=== PATIENT | female | born 1970 | race Caucasian/White ===

== ENCOUNTER → 2017-11-05 | Outpatient (CLI) | payer BC ==
[~2017-11-05] MED LIST: BCPILLS PO; MULT-506 PO
--- NOTE | 2017-11-06 08:02 | MAMMOGRAPHY REPORT ---
BILATERAL DIGITAL SCREENING MAMMOGRAM TOMOSYNTHESIS WITH CAD: 11/05/2017 CLINICAL HISTORY: Routine screening. Patient has no complaints. TECHNIQUE: Breast tomosynthesis in addition to standard 2D mammography was performed. Current study was also evaluated with a Computer Aided Detection (CAD) system. COMPARISON: Comparison is made to exams dated: 10/04/2015 mammogram, 09/30/2014 mammogram, 03/24/2012 ul trasound, 03/24/2012 mammogram, 03/18/2012 mammogram, and 10/01/2012 mammogram - [facility]. BREAST COMPOSITION: The tissue of both breasts is heterogeneously dense, which may obscure small mas ses. FINDINGS: There is a stable lobulated mass with associated ribbon-shaped biopsy marker clip in the l ower inner quadrant of the right breast. No new suspicious mass, architectural distortion or cluster of microcalcifications is seen. IMPRESSION: ACR BI-RADS CATEGORY 1: NEGATIVE There is no mammographic evidence of malignancy. A 1 year screening mammogram is recommended. The pa tient will receive written notification of the results. Approximately 10% of breast cancers are not detected with mammography. A negative mammographic report should not delay biopsy if a clinically suggestive mass is present. Jennifer Us M.D. ay/:11/05/2017 15:10:59 Top Lifter: Carmela ALBA)([place]), [facility] letter sent: Normal 1/2 BI-RADS Code: ACR BI-RADS Category 1: Negative
== END | disposition home or self-care (01) ==
LOC: C.MAMM 10:17
PROVIDERS: ATTEND Nurse Practitioner
DX: Z12.31 Encounter for screening mammogram for malignant neoplasm of breast (principal)

== ENCOUNTER → 2017-11-26 | Outpatient (CLI) | payer BC ==
[2017-11-26 17:33] LABS: BLOOD UREA NITROGEN 14 mg/dl (7-18); CALCIUM 9.1 mg/dl (8.5-10.1); CARBON DIOXIDE 26 mmol/L (21-32); CREATININE 0.54 mg/dl (0.60-1.20); GLUCOSE 100 mg/dl (70-99); POTASSIUM 3.5 mmol/L (3.5-5.1); SODIUM 138 mmol/L (136-145)
== END | disposition home or self-care (01) ==
LOC: C.LABPVFM 15:44
PROVIDERS: ATTEND Nurse Practitioner
DX: R53.83 Other fatigue (principal); M25.50 Pain in unspecified joint; R41.3 Other amnesia

== ENCOUNTER 2019-03-31 08:33 | Inpatient (IN) ==
--- NOTE | 2019-03-20 08:31 | History & Physical Report ---
Date of Service March 20, 2019 Date of Surgery: 03-31-19 Assessment & Plan (1) Arthritis of knee, right: Risks and benefits of procedure discussed in detail today, patient would like to proceed with a Right total knee replacement at [facility] as scheduled. obtain PATs at [facility]. Will place on ASA 81mg po bid x 1 month post op, f/u 2 weeks post op for routine post-operative care and x-ray, sooner if having any problems. will make arrangements for HHPT at the time of discharge. At this point in time, has failed conservative measures and would like to proceed with surgical intervention. History of Present Illness Chief Complaint: right knee pain Primary Care Provider: DULCE MARIA Abrams Ms Barlow is a 48 year old female who complains of knee pain, presents for pre-op evaluation prior to a right total knee replacement by dr Villanueva at [facility]. She complains of pain, crepitus, decreased range of motion, instability and stiffness in the right knee. She states that the symptoms have been chronic and non-traumatic. she states that the symptoms occur constantly with intermittent worsening. Currently the patient states that the symptoms are moderate-severe. The pain is described as aching, sharp and throbbing. The symptoms occur continuously. The symptoms are aggravated by ascending stairs, daily activities, first steps while awake walking. Prior NSAIDs include Mobic, IBU and Aleve. Prior pain medications include Tylenol. She has been treated with previous Cortisone and Visco injections in the past without much relief. She has had Pt and sometimes uses a knee brace. Patient has also had arthroscopic surgery in the past, Dr. Villanueva performed a Right knee arthroscopy in many years ago. Allergies Allergy/AdvReac Type Severity Reaction Status Date / Time No Known Drug Allergies Allergy Verified 03/13/19 15:51 Home Medications Home Medications Medication Instructions Recorded Confirmed Type Cbd Oil 1 - 2 tab PO DAILY 03/12/19 03/17/19 History meloxicam 15 mg PO DAILY 03/12/19 03/17/19 History multivitamin 1 tab PO DAILY 03/12/19 03/17/19 History norethindrone acetate 1 mg-ethinyl 1 tab PO DAILY #21 tab 03/17/19 03/17/19 Rx estradiol 20 mcg tablet Past Med/Surg History Medical History Depression History of anemia as a child Osteoarthritis Surgical History H/O hand surgery RT HAND FOREIGN OBJECT REMOVED History of arthroscopy RT KNEE History of breast biopsy History of ear surgery RT EAR PUNCTURE REPAIR History of open reduction and internal fixation (ORIF) procedure RT ANKLE (HARDWARE) History of tooth extraction Family History Other No significant family history Social History Preferred Language: Ecuadorean Communication Ability: Effective Beliefs That Will Affect Care: None Current Living Situation: Spouse Feels Safe at Home: Yes Smoking Status: Never smoker Second Hand Exposure: No Hx Alcohol Use: Yes Alcohol type: wine and hard liquor Hx Substance Use: No Review of Systems Review of Systems: All systems reviewed & are unremarkable except as noted in HPI & below Constitutional: no fever, no chills and no sweats Respiratory: no cough and no dyspnea Cardiovascular: no chest pain, no dyspnea and no orthopnea Gastrointestinal: no abdominal pain, no nausea and no vomiting Musculoskeletal: as per Subjective / HPI Physical Exam Physical Exam: Ht: 5ft 5in Wt: 88.45kg BP: 112/76 Pulse: 70 Constitutional: WD/WN, vitals as above no acute distress Respiratory: normal respiratory effort, lungs clear to auscultation no respiratory distress, no labored breathing and does not use accessory muscles Cardiovascular: RRR, no murmur, no edema Gastrointestinal (Abdomen): normal bowel sounds, soft, nontender, no hepatosplenomegaly Musculoskeletal: Right Knee Exam she ambulates with a limp, overall varus alignment, There is no ecchymosis or erythema, mild effusion, diffuse tenderness to the knee greatest over medial compartment, negative patellar apprehension , mild crepitation with motion, rossy's negative, Jason's - medial positive, Posterior drawer- negative, anterior drawer negative, valgus stress negative, varus stress negative, no extensor lag, pain with active range of motion, less pain with passive painful ROM, Range of motion 0/3/110. No pain with active/passive ROM of ankle. Lower extremity strength normal. Lower extremity neuro-vascular is normal Results & Data Diagnostic Findings Right Knee X-ray from 10-08-18 confirms advanced degenerative changes to the right knee with narrowing of the medial compartment and patello-femoral joint with patellar spurring noted, there is osteophyte formation and subchondral sclerosis noted. overall varus alignment. no acute bony pathology noted.
--- NOTE | 2019-03-20 15:11 | PAT Medication Instructions ---
Medication Instructions Date of Service March 20, 2019 Home Medications Medication Instructions Recorded norethindrone acetate 1 mg-ethinyl 1 tab PO DAILY #21 tab 03/17/19 estradiol 20 mcg tablet Cbd Oil 1 - 2 tab PO DAILY meloxicam 15 mg PO DAILY multivitamin 1 tab PO DAILY norethindrone acetate 1 mg-ethinyl estradiol 20 mcg tablet 1 tab PO DAILY ASK your surgeon for instructions meloxicam 15 mg PO DAILY DO NOT take the morning of surgery Cbd Oil 1 - 2 tab PO DAILY multivitamin 1 tab PO DAILY Take evening before surgery norethindrone acetate 1 mg-ethinyl estradiol 20 mcg tablet 1 tab PO DAILY *NOTHING TO EAT OR DRINK AFTER MIDNIGHT* Other Notes If you have any questions please call us at [phone] or [phone] or [phone] or [phone]
--- NOTE | 2019-03-20 15:13 | Anesthesiology Consultation ---
Date of Service March 20, 2019 Assessment & Plan (1) Encounter for pre-operative examination: PCP CLEARANCE 03/17 = "Pt is low risk for complications." TEST AM DOS Chart Review Chart Review: Acceptable Risk for Surgery and Patient seen in Pre Admission Testing Teaching & Discussion Instructed NPO after midnight before surgery, except medications with 15 cc of water. Medication instructions provided according to the PAT guidelines. History Surgery Operation Date: 03/31/19 07:15 Proposed Procedures p Right Total Knee Arthroplasty - Julián Villanueva DO Height/Weight Height: 5 ft 5 in Weight: 88.9 kg Allergies Allergy/AdvReac Type Severity Reaction Status Date / Time No Known Drug Allergies Allergy Verified 03/13/19 15:51 Medications Home Medications Medication Instructions Recorded Confirmed Last Taken Cbd Oil 1 - 2 tab PO DAILY 03/12/19 03/17/19 Unknown meloxicam 15 mg PO DAILY 03/12/19 03/17/19 Unknown multivitamin 1 tab PO DAILY 03/12/19 03/17/19 Unknown norethindrone acetate 1 mg-ethinyl 1 tab PO DAILY #21 tab 03/17/19 03/17/19 Unknown estradiol 20 mcg tablet Past Medical History Medical History Depression Obesity Osteoarthritis Exercise / Class Metabolic Activity II 4-5 Yardwork/Stairs/Walk up hill (denies CP or SOB with stairs) Past Family History Family History Other No significant family history Past Surgical History Surgical History H/O hand surgery RT HAND FOREIGN OBJECT REMOVED History of arthroscopy RT KNEE History of breast biopsy History of ear surgery RT EAR PUNCTURE REPAIR History of open reduction and internal fixation (ORIF) procedure RT ANKLE (HARDWARE) History of tooth extraction Past Anesthesia History No Hx of Anesthesia Complications and No Family Hx of Anesthesia Complications History of PONV No Hx of PONV and No Hx of Motion Sickness Social History Smoking Status: Never smoker Do You Dip or Chew Tobacco: No Hx Alcohol Use: Yes Alcohol type: wine and hard liquor alcohol intake frequency: holidays/special occasions only Hx Substance Use: No substance use type: does not use Review of Systems Pt denies any recent chest pain, shortness of breath, palpitations, cough, fever or URI. +seasonal allergies Physical Exam Vital Signs BP: 109/68 P: 69bpm SPO2: 100% RA T: 98.2 F R: 16 ENMT Mouth: + dental restorations (few caps); no chipped teeth and no loose teeth Thyromental Distance: < 3.5 Finger Breadths (3) Mallampati Class: I Neck normal visual inspection; neck extension not limited Respiratory normal respiratory effort Auscultation: lungs clear to auscultation bilaterally Cardiovascular Rate/Rhythm: regular rate and regular rhythm Heart Sounds: no murmur Extremities: no edema Testing Laboratory Results 03/20/19 15:34 03/20/19 15:34 PT 10.9 Seconds (9.0-12.0) 03/20/19 15:34 INR 1.1 (0.9-1.1) 03/20/19 15:34 APTT 27.7 Seconds (21.0-31.0) 03/20/19 15:34 Hemoglobin A1c 5.1 % (4.5-5.6) 03/20/19 15:34 Urine Color Yellow 03/20/19 15:34 Urine Appearance Clear (Clear) 03/20/19 15:34 Urine pH 5.0 (4.5-7.5) 03/20/19 15:34 Ur Specific [place] 1.015 (1.000-1.030) 03/20/19 15:34 Urine Protein Negative (Negative) 03/20/19 15:34 Urine Glucose (UA) Negative (Negative) 03/20/19 15:34 Urine Ketones Negative (Negative) 03/20/19 15:34 Urine Nitrite Negative (Negative) 03/20/19 15:34 Ur Leukocyte Esterase Negative (Negative) 03/20/19 15:34 Blood Type A Positive 03/20/19 15:34 Antibody Screen NEGATIVE 03/20/19 15:34 Electrocardiogram Date: 03/20/19 Findings: + NSR @ (62) Chest X-Ray Date: 03/20/19 Findings: + NAD
--- NOTE | 2019-03-20 16:01 | XRay Report ---
XR chest Pre-admission PA/Lat HISTORY: 48 years-old Female pat preoperative exam. No acute chest complaints COMPARISON: None available TECHNIQUE: PA and lateral views of the chest FINDINGS: Cardiomediastinal and hilar silhouettes are within normal limits. No pneumothorax, pleural effusion, focal airspace consolidation or overt pulmonary edema. Bones of the chest appear grossly intact. IMPRESSION: No acute process. The above report was generated using voice recognition software. It may contain grammatical, syntax o r spelling errors. Electronically signed by: Jorge Diego M.D. 03/20/2019 4:00 PM
[2019-03-20 16:07] LABS: Basophils # (auto) 0.03 K/uL (0-0.2); Basophils % (auto) 0.5 %; Eosinophils # (auto) 0.08 K/uL (0-0.5); Eosinophils % (auto) 1.3 %; Hematocrit (blood only) 34.8 % (37-47); Hemoglobin 11.4 g/dL (12.0-16.0); Immature Granulocytes # (auto) 0.01 K/uL (0.00-0.02); Immature Granulocytes % (auto) 0.2 %; Lymphocytes # (auto) 1.51 K/uL (1.2-3.4); Lymphocytes % (auto) 25.3 %; Mean Corpuscular Hgb Conc 32.8 g/dL (32-36); Mean Corpuscular Volume 95.1 fL (80-100); Monocytes # (auto) 0.52 K/uL (0.11-0.59); Monocytes % (auto) 8.7 %; Neutrophils # (auto) 3.83 K/uL (1.4-6.5); Platelet Count 302 K/uL (130-400); RDW Coefficient of Variation 13.4 % (11.5-14.5); Red Blood Count 3.66 M/uL (4.2-5.4); White Blood Count 5.98 K/uL (4.8-10.8)
[2019-03-20 16:15] LABS: Albumin Level 3.8 gm/dl (3.4-5.0); BUN Creatinine Ratio 17.2 (10-20); Calcium 9.3 mg/dl (8.5-10.1); Creatinine Clr Calc Pharmacy 144.1 ml/min; Est GFR (Non-African American) 112.2; Potassium 4.1 mmol/L (3.5-5.1)
[2019-03-20 16:18] LABS: INR 1.1 (0.9-1.1); Partial Thromboplastin Time 27.7 Seconds (21.0-31.0); Prothrombin Time 10.9 Seconds (9.0-12.0)
[2019-03-20 16:20] LABS: Appearance Urine Clear (Clear); Bilirubin Urine Negative (Negative); Blood Urine Negative (Negative); Color Urine Yellow; Glucose Urine UA Negative (Negative); Ketones Urine Negative (Negative); Leukocyte Esterase Urine Negative (Negative); Nitrite Urine Negative (Negative); Protein Urine Negative (Negative); Specific Gravity Urine 1.015 (1.000-1.030); Urobilinogen Urine Negative (Negative)
[2019-03-21 06:34] LABS: Estimated Average Glucose 100 mg/dl; Hemoglobin A1C 5.1 % (4.5-5.6)
[~2019-03-31 08:33] MED LIST changes: +ACETAMINOPHEN 500 MG TAB PO SCH; -BCPILLS PO; +BUPIVACAINE 0.5 % 5 MG/1 ML PF 10ML VIAL ONE; +CEFAZOLIN 2000MG 2,000 MG/15 ML SYR IV SCH; +CeleBREX 200 MG CAP PO SCH; +DEXAMETHASONE SOD INJ 4 MG/ML VIAL ONE; +FAMOTIDINE 20 MG TAB PO SCH; +GABAPENTIN 900 MG DOSE PO SCH; +LIDOCAINE HCL 2% 2 ML VIAL/AMP(20MG/ML) INFIL ONE; +LR 500ML BOLUS, THEN 15ML/HR IV SCH; +MIDAZOLAM HCL 1 MG/ML 2ML VIAL ONE; -MULT-506 PO; +ONDANSETRON INJ 2 MG/ML 2 ML VIAL ONE; +PROPOFOL IV EMULSION 10 MG/ML 20 ML VIAL IV ONE; +ROPIVACAINE 0.5% 5 MG/ML 30 ML VIAL ONE; +ROPIVACAINE 0.5% HCL/PF 150 MG, BUPIVACAINE 0.5% MPF 30 ML, EPINEPHrine 30MG/30ML (OR U... INSTIL SCH; +TRANEXAMIC ACID 1,000 MG **IV Intra-op IV SCH; +TRANEXAMIC ACID 1,000 MG **IV Pre-op IV SCH; +dexAMETHasone 4 MG TAB PO SCH; +fentaNYL citrate 100 MCG/2 ML VIAL ONE
--- NOTE | 2019-03-31 09:25 | History & Physical Bridge Note ---
Date of Service March 31, 2019 History & Physical Bridge Note I have examined the patient, reviewed the History & Physical and in the interval since the performance of the History & Physical I have noted the following changes of clinical significance: no changes noted
[2019-03-31] MEDS ORDERED: HYDROmorphone INJ 1 MG/ML SYRINGE IV PRN ×2 (09:42→09:54)
[2019-03-31] MEDS ORDERED: ePHEDrine sulfate 50 MG/ML AMP IV PRN (09:42)
[2019-03-31] MEDS ORDERED: ATROPINE SULFATE 0.1 MG/ML 10ML SYR IV PRN ×2 (09:42→09:54)
[2019-03-31] MEDS ORDERED: ONDANSETRON INJ 2 MG/ML 2 ML VIAL IV PRN ×3 (09:42→13:26)
[2019-03-31] MEDS ORDERED: KETOROLAC 30 MG/ML VIAL IV PRN ×2 (09:42→09:54)
[2019-03-31] MEDS ORDERED: LABETALOL HCL IV 5 MG/ML 20ML IV PRN (09:54)
[2019-03-31] MEDS ORDERED: PROMETHAZINE HCL 12.5 MG in SODIUM CHLORIDE 0.9% 50 ML IV PRN (09:54)
[2019-03-31] MEDS ORDERED: ORTHO JOINT ANESTHETIC ONE (10:00)
[2019-03-31] MEDS ORDERED: BACITRACIN INJ 50,000 UNIT VIAL ONE (10:00)
--- NOTE | 2019-03-31 11:54 | Operative Report ---
Post Operative Report Pre & Post Diagnosis Operation Date: 03/31/19 11:05 Pre-Op Diagnosis: Right Knee Osteoarthritis Post-Op Diagnosis: Right Knee Osteoarthritis Procedure Operation Date: 03/31/19 11:05 Actual Procedures p Right Total Knee Arthroplasty(Right utilizing persona Biomet Kelli medial constrained total knee arthroplasty size 7 narrow femur E tibia poly-medial co ngruent 13 mm patella 28 oval) - Julián Villanueva DO Surgeon Julián Villanueva DO Parts Manager Ravi MONACO Estimated Blood Loss 5 Findings Consistent with Post-Op Diagnosis Patient resents with severe end-stage DJD [id number] changes medial compar tment medial osteophytes subchondral cystic changes varus alignment moderate to large effusion no response to conservative management with DJD bilateral knees right knee worse than left presents for right total knee arthroplasty Specimens Bone cartilage Drains Medium bore Hemovac Complications none Disposition Accompanied Patient To Recovery: No Disposition: Recovery Room Indications Patient presents with severe end-stage tricompartmental degenerative joint disease no response to conservative management including physical therapy anti-inflammatories relative rest activity modification corticosteroid injections Visco supplementation the above intraoperative findings were noted at the time of surgery. Description of Procedure After proper prepping draping of the right lower extremity and anterior midline incision was made utilizing electrocautery subcutaneous dissection was carried out a medial parapatellar incision made utilizing second blade the patella was subluxed lateralward the anterior lateral attachment of the lateral meniscus was released a partial excision of the fat pad was performed the medial retinaculum was released off the proximal tibia for exposure to the proximal tibia especially after exposure of the proximal tibia and distal femur a IM guide was placed the distal femoral osteotomy was made at 5 degrees valgus for 1 block was used distal femoral osteotomy cuts were made medial lateral meniscal remnants were excised in their entirety the proximal tibial osteotomy was made with the extramedullary guide system the trial component of the tibia and femur socially placed tibial poly-was trialed and ranged from 9-13 size 13 medial congruent gave excellent stability in both full extension mid flexion and flexion the flexion contracture was going to full extension was noted who was irrigated with copious muscle sterile saline solution hemostasis was meticulously only obtained subsequently the patella was cut and trialed patellofemoral tracking was noted to be excellent subsequently the final components were brought to the back field after meticulous irrigation debridement lavage and injection of the joint injection into the subcutaneous and posterior capsular tissues the components were cemented in the following order tibia femur patella tracking to be excel lent after the cement was hardened medial parapatellar incision was closed #1 Vicryl subcu was closed with 2-0 Vicryl skin was closed skin clips sterile compressive dressing was placed please note that the medium bore Hemovac in place to the wound Ravi MONACO was necessary prepping draping retraction wound closure the fascia subcu skin was necessary for the case. I attest to the content of the Intraoperative Record and any orders documented therein. Any exceptions are noted below.
--- NOTE | 2019-03-31 12:57 | Anesthesiology Progress Note ---
Date of Service March 31, 2019 Anesthesia Post Procedure Vital Signs Vital Signs: Temp Pulse Pulse Resp BP Pulse Ox 03/31/19 12:36 36.8 C 78 20 117/58 L 100 03/31/19 09:14 36.8 C 68 18 106/61 99 Pain Intensity Right Knee: Pain Intensity: 0 Transfer of Care Handoff Completed per policy Notes Mental Status: alert / awake / arousable Patient Amnestic to Procedure: Yes Nausea / Vomiting: adequately controlled Pain: adequately controlled Airway Patency, RR, SpO2: stable & adequate BP & HR: stable & adequate Hydration State: stable & adequate Anesthetic Complications: no major complications apparent
--- NOTE | 2019-03-31 13:08 | XRay Report ---
TWO VIEWS RIGHT KNEE CLINICAL HISTORY: Postoperative examination. FINDINGS: AP and crosstable lateral portable views of the right knee are obtained. A right knee arthr oplasty is in near anatomic alignment. There has been undersurface remodeling of the patella. No acut e fracture is seen. There are expected postoperative changes around the knee including skin clips, a surgical drain, soft tissue edema, and subcutaneous gas. IMPRESSION: Expected postoperative changes status post right knee arthroplasty. No acute fracture is seen. Electronically signed by: Uvaldo Shore M.D. 03/31/2019 1:07 PM
[2019-03-31] MEDS ORDERED: ALUMINUM/MAGNESIUM SUSP 30 ML UDC PO PRN (13:26)
[2019-03-31] MEDS ORDERED: NALOXONE HCL 0.4 MG/1 ML VIAL/CARP IV PRN (13:26)
[2019-03-31] MEDS ORDERED: MAGNESIUM HYDROXIDE SUSP 30 ML UDC PO PRN (13:26)
[2019-03-31] MEDS ORDERED: HYDROmorphone INJ 0.5 MG/0.5 ML SYR IV PRN (13:26)
[2019-03-31] MEDS ORDERED: BISACODYL 10 MG SUPP PR PRN (13:26)
[2019-03-31] MEDS: KETOROLAC 30 MG/ML VIAL IV SCH ×2 (13:48→19:51)
[2019-03-31] MEDS: SODIUM CHLORIDE 0.9% 1000ML 1,000 ML IV SCH (13:48)
[2019-03-31] MEDS: OXYCODONE HCL IR 5 MG TAB (IMMEDIATE RELEASE) PO PRN (16:19)
[2019-03-31] MEDS: ACETAMINOPHEN 500 MG TAB PO SCH (17:16)
[2019-03-31] MEDS: CEFAZOLIN 2000MG 2,000 MG/15 ML SYR IV SCH (17:17)
[2019-03-31] MEDS: SENNA 8.6 MG TAB PO SCH (20:45)
[2019-03-31] MEDS: ASPIRIN 81 MG ECTAB PO SCH (20:46)
[2019-03-31] MEDS: DOCUSATE SODIUM 100 MG CAP PO SCH (20:46)
[2019-03-31] MEDS: LARIN PO SCH ×3 (20:48→20:59)
[2019-04-01] MEDS: OXYCODONE HCL IR 5 MG TAB (IMMEDIATE RELEASE) PO PRN ×4 (00:15→19:34)
[2019-04-01] MEDS: CEFAZOLIN 2000MG 2,000 MG/15 ML SYR IV SCH (01:41)
[2019-04-01] MEDS: KETOROLAC 30 MG/ML VIAL IV SCH ×4 (01:41→19:35)
[2019-04-01] MEDS: SODIUM CHLORIDE 0.9% 1000ML 1,000 ML IV SCH (02:20)
[2019-04-01] MEDS: ACETAMINOPHEN 500 MG TAB PO SCH ×3 (05:26→20:58)
[2019-04-01 06:13] LABS: Hematocrit (blood only) 31.5 % (37-47); Hemoglobin 10.4 g/dL (12.0-16.0); Mean Platelet Volume 11.2 fL (7.4-10.4); Platelet Count 277 K/uL (130-400); RDW Coefficient of Variation 13.2 % (11.5-14.5); RDW Standard Deviation 46.1 fL (36.4-46.3); Red Blood Count 3.28 M/uL (4.2-5.4)
[2019-04-01 06:52] LABS: BUN Creatinine Ratio 13.4 (10-20); Calcium 8.5 mg/dl (8.5-10.1); Creatinine Clr Calc Pharmacy 122.1 ml/min; Est GFR (African American) 123.4; Est GFR (Non-African American) 106.5
--- NOTE | 2019-04-01 07:27 | Progress Note ---
DATE: 04/01/2019 SUBJECTIVE: The patient is postop day 1 status post right total knee arthroplasty. Currently, she is awake and alert and oriented, sitting up in her bed. She has no overt complaints at this time and pain is controlled. She denies shortness of breath, chest pain or lightheadedness and is feeling well. OBJECTIVE: VITAL SIGNS: Latest BP was 97/59, pulse 69, respirations 16 and she is afebrile. EXTREMITIES: Dressings were clean, dry and intact. Calves were soft, nontender. Neurovascular is intact. Toes were mobile. Hemovac drainage has drained around 70s from the latest shift. Hemoglobin is 10.4. ASSESSMENT: Postop day 1 status post right total knee arthroplasty. PLAN: PT, OT protocols today with weightbearing as tolerated. She will be continued on DVT prophylaxis with aspirin 81 mg p.o. b.i.d., SCDs and ALTA hose, pain management with acetaminophen q. 8 hours, hydromorphone, oxycodone and Toradol. Discharge planning: The patient is planning for home health services upon discharge.
[2019-04-01] MEDS: DOCUSATE SODIUM 100 MG CAP PO SCH ×2 (08:33→20:58)
[2019-04-01] MEDS: MULTIVITAMIN TAB PO SCH (08:34)
[2019-04-01] MEDS: ASPIRIN 81 MG ECTAB PO SCH ×2 (08:34→21:00)
--- NOTE | 2019-04-01 12:44 | Communication Note ---
Date of Service: April 01, 2019 Dr Villanueva will be seeing Ms Barlow today for rounding purposes.
[2019-04-01] MEDS: SENNA 8.6 MG TAB PO SCH (20:58)
[2019-04-01] MEDS: LARIN PO SCH (21:00)
[2019-04-02] MEDS: KETOROLAC 30 MG/ML VIAL IV SCH ×2 (02:37→08:13)
[2019-04-02] MEDS: ACETAMINOPHEN 500 MG TAB PO SCH (05:42)
--- NOTE | 2019-04-02 07:57 | Progress Note ---
DATE: 04/02/2019 SUBJECTIVE: The patient is awake and alert and oriented this morning, lying in bed. She states that she had a fairly decent night, but was having some bouts of diarrhea which then this morning has changed and had somewhat of a formed stool. She was having some nausea for which she was given some Zofran which helped her. She has no other complaints at this time. Pain is controlled and she has no shortness of breath, chest pain or lightheadedness. She is concerned with some medications causing her bowels to loosen up. OBJECTIVE: Silverlon dressing is clean, dry and intact. Drain has been removed. Knee has some mild swelling and there is just mild ecchymosis noted around the patella itself. Calves were soft, nontender, neurovascularly intact. Toes were mobile. Her belly is soft and nontender on palpation and she states that it feels pretty good this morning. ASSESSMENT: Postoperative day 2 status post right total knee arthroplasty. PLAN: Continue PT and OT protocols and DVT prophylaxis and pain management. We will hold her stool softener and her Senokot at this time since she is having bowel movements. She has a little bit of decreased appetite, which she says she is going to try to eat this morning. She is progressing with her physical therapy and we will recheck her later today to see how she is progressing with her bowels, and if she is doing well, we will plan for discharge today with plans for outpatient PT upon discharge. Addendum: Pt rechecked by Elias Rascon PA-C. Progressing well. Plan for DC. NATHALIE
[2019-04-02] MEDS: ASPIRIN 81 MG ECTAB PO SCH (08:11)
[2019-04-02] MEDS: MULTIVITAMIN TAB PO SCH (08:11)
[2019-04-02] MEDS: OXYCODONE HCL IR 5 MG TAB (IMMEDIATE RELEASE) PO PRN (12:13)
--- NOTE | 2019-04-04 22:09 | Discharge Summary ---
DISCHARGE DIAGNOSIS: Degenerative joint disease, right knee. SECONDARY DIAGNOSES: Depression, anemia as a child and osteoarthritis. CONSULTS: None. COMPLICATIONS: None. PROCEDURES: Right total knee arthroplasty performed by Dr. Villanueva on 03/31/2019. BRIEF HISTORY: As dictated in the history and physical. HOSPITAL SUMMARY: The patient was admitted on the above-noted date and had the above-noted surgery performed, which she tolerated well. On her first postoperative day, she was awake and alert and sitting up in her bed. She had no overt complaints at that time. Pain was controlled. Denied shortness of breath, chest pain or lightheadedness and was feeling well. Vital signs were stable and blood pressure was noted to be 97/59. Dressings were clean, dry and intact. Calves were soft, nontender and neurovascularly intact. Toes were mobile. Hemovac drainage was around 70 mL from the previous shift. Hemoglobin was 10.4. She was started on physical therapy protocol and continued on deep venous thrombosis prophylaxis and pain management. Plans were for home health services upon discharge. By her second postoperative day, she was awake, alert and oriented that morning lying in bed. She stated she had a fairly decent night, but was having some bouts of diarrhea which then that morning had changed and it was somewhat of a formed stool. She was having some nausea which she was given some Zofran which helped. She had no other complaints. Pain was controlled and she had no shortness of breath, chest pain or lightheadedness. She was concerned with some of the medications causing her bowels to loosen up. Silverlon dressing was clean, dry and intact. Drain had been removed. The knee had some mild swelling and there was some mild ecchymosis noted. Calves were soft, nontender and neurovascularly intact. Toes were mobile. Her abdomen was soft, nontender on palpation and she was feeling pretty good that morning. She was continued on physical therapy and occupational therapy protocols and deep venous thrombosis prophylaxis and pain management. Her stool softener and Senokot were held at that time. She was having some decreased appetite, which she states that she was going to try to eat that morning. She was progressing with her physical therapy and plans were to recheck her later that day to see if she was ready for discharge. She was then rechecked by Elias Rascon PA-C later that day. She was progressing well and feeling well and was discharged to home. For further review, please see chart. LABORATORY AND X-RAY DATA: As per chart. DISCHARGE INSTRUCTIONS: The patient was discharged to home in satisfactory condition on 04/02/2019 in a stable condition. DIET: Regular. ACTIVITY: Weightbearing as tolerated on the right lower extremity. Follow TK instruction sheets and special care instructions as noted. Follow up with Dr. Villanueva in 2 weeks. The patient is to call for an appointment if one has not been made for. DISCHARGE MEDICATIONS: Acetaminophen 1000 mg p.o. q. 8 hours, aspirin 81 mg p.o. b.i.d., cefadroxil 500 mg p.o. b.i.d., oxycodone 5 mg p.o. q. 6 hours p.r.n., sennosides 17.2 mg p.o. at bedtime, multivitamins 1 tablet p.o. daily and Bimal 1/20 one tablet p.o. daily. Stop taking CBD oil and meloxicam.
== END 2019-04-02 13:46 | disposition home or self-care (01) | DRG 470 ==
LOC: ASU 08:33 → 3E 12:44